=== PATIENT | male | born 1985 | race Caucasian/White ===

== ENCOUNTER 2021-05-23 20:07 | Inpatient (IN) | payer BC ==
[2021-05-23] MEDS ORDERED: Sodium Chloride 0.9% 10 ML Syringe FLUSH PRN (20:30)
[2021-05-23] MEDS ORDERED: Acetaminophen 325 MG Tab PO ONE (20:38)
--- NOTE | 2021-05-23 20:42 | EDM.PDOC ---
ED HPI GENERAL MEDICAL PROBLEM - General Chief Complaint: Respiratory Problem Stated Complaint: COVID+ Time Seen by Provider: 05/23/21 20:17 Source of Information: Reports: Patient, RN Notes Reviewed History Limitations: Reports: No Limitations - History of Present Illness INITIAL COMMENTS - FREE TEXT/NARRATIVE: Patient is a 35-year-old male who presents to the ER for his COVID-19 symptoms. States he think he has been symptomatic for about 5 days. Notes that he developed nausea and vomiting 2 days ago, he states that he has not really been able to keep much down for food or fluids. Has had some elevated temperatures, a dry intermittent cough, and some mild shortness of breath. States he does feel quite lethargic and just does not want to do much of anything at all. He was found to be slightly hypoxic at the time of triage O2 sats were around 86% on room air. He was placed on 2 L via nasal cannula and this did result in O2 sats that have improved to around 94 to 95%. Patient states he has no underlying medical conditions however when he was younger, he did have multiple RSV infections, and has had pneumonia a few times along with bronchitis, and bronchitis concurrent with pneumonia. Primary care provider is Dr. Krishnan. Generalized Pain Score (Numeric/FACES): 6 - Related Data Allergies Allergy/AdvReac Type Severity Reaction Status Date / Time diphenhydramine Allergy Rash Verified 05/23/21 20:14 [From Triaminic Allergy] Past Medical History Respiratory History: Reports: Bronchitis, Recurrent, Pneumonia, Recurrent, Other (See Below) Other Respiratory History: RSV in childhood. Musculoskeletal History: Reports: Back Pain, Chronic, Fracture Neurological History: Reports: Concussion - Infectious Disease History Infectious Disease History: Reports: Chicken Pox, Novel Coronavirus (05/11/21) - Past Surgical History Musculoskeletal Surgical History: Reports: Other (See Below) Other Musculoskeletal Surgeries/Procedures:: back surgery. Social & Family History - Tobacco Use Tobacco Use Status *Q: Never Tobacco User Second Hand Smoke Exposure: No - Caffeine Use Caffeine Use: Reports: Soda - Recreational Drug Use Recreational Drug Use: No ED ROS GENERAL - Review of Systems Review Of Systems: Comprehensive ROS is negative, except as noted in HPI. ED EXAM, GENERAL - Physical Exam Exam: See Below Exam Limited By: No Limitations General Appearance: Alert, WD/WN, No Apparent Distress Respiratory/Chest: No Respiratory Distress, Lungs Clear, Normal Breath Sounds, No Accessory Muscle Use, Chest Non-Tender Cardiovascular: Normal Peripheral Pulses, Regular Rate, Rhythm, No Edema GI/Abdominal: Normal Bowel Sounds, Soft, Non-Tender, No Distention, No Mass Extremities: Normal Inspection, Normal Capillary Refill Neurological: Alert, Oriented, Normal Cognition, No Motor/Sensory Deficits Psychiatric: Normal Affect, Normal Mood Skin Exam: Warm, Dry, Intact, Normal Color, No Rash Course - Vital Signs Last Recorded V/S: Last Vital Signs Temp 100.3 F 05/23/21 21:08 Pulse 93 05/23/21 21:08 Resp 13 05/23/21 21:08 BP 103/71 05/23/21 21:08 Pulse Ox 95 05/23/21 21:08 - Orders/Labs/Meds Orders: Active Orders 24 hr Category Date Time Status Oxygen Therapy, ED [RC] ASDIRECTED Care 05/23/21 20:15 Active Peripheral IV Care [RC] . DIRECTED Care 05/23/21 20:31 Ordered Chest 1V Frontal [CR] Stat Exams 05/23/21 20:30 Ordered Sodium Chloride 0.9% [Saline Flush] Med 05/23/21 20:30 Ordered 10 ml FLUSH ASDIRECTED PRN Peripheral IV Insertion Adult [OM.PC] Routine Oth 05/23/21 20:30 Ordered Medication Orders Sodium Chloride (Sodium Chloride 0.9% 10 Ml Syringe) 10 ml FLUSH ASDIRECTED PRN PRN Reason: Keep Vein Open Last Admin: 05/23/21 21:05 Dose: 10 ml Documented by: ALLEN Labs: Laboratory Tests 05/23/21 05/23/21 05/23/21 Range/Units 20:45 20:45 20:45 WBC 4.03 L (4.23-9.07) K/mm3 RBC 5.99 (4.63-6.08) M/mm3 Hgb 15.7 (13.7-17.5) gm/dl Hct 48.0 (40.1-51.0) % MCV 80.1 (79.0-92.2) fl MCH 26.2 (25.7-32.2) pg MCHC 32.7 (32.2-35.5) g/dl RDW Std Deviation 46.5 H (35.1-43.9) fL Plt Count 139 L (163-337) K/mm3 MPV 9.8 (9.4-12.3) fl Neut % (Auto) 77.8 H (34.0-67.9) % Lymph % (Auto) 16.6 L (21.8-53.1) % [place] % (Auto) 5.2 L (5.3-12.2) % Eos % (Auto) 0 L (0.8-7.0) Baso % (Auto) 0.2 (0.1-1.2) % Neut # (Auto) 3.13 (1.78-5.38) K/mm3 Lymph # (Auto) 0.67 L (1.32-3.57) K/mm3 [place] # (Auto) 0.21 L (0.30-0.82) K/mm3 Eos # (Auto) 0.00 L (0.04-0.54) K/mm3 Baso # (Auto) 0.01 (0.01-0.08) K/mm3 D-Dimer, Quantitative (0.19-0.50) mg/L Sodium 137 (136-145) mEq/L Potassium 3.7 (3.5-5.1) mEq/L Chloride 100 (98-107) mEq/L Carbon Dioxide 30 (21-32) mEq/L Anion Gap 10.7 (5-15) BUN 14 (7-18) mg/dL Creatinine 1.4 H (0.7-1.3) mg/dL Est Cr Clr Drug Dosing 80.06 mL/min Estimated GFR (MDRD) 57 (>60) mL/min BUN/Creatinine Ratio 10.0 L (14-18) Glucose 113 H (70-99) mg/dL Calcium 8.1 L (8.5-10.1) mg/dL Magnesium 2.0 (1.8-2.4) mg/dL Total Bilirubin 0.6 (0.2-1.0) mg/dL AST 42 H (15-37) U/L ALT 42 (16-63) U/L Alkaline Phosphatase 53 (46-116) U/L C-Reactive Protein 2.0 H* (<1.0) mg/dL Total Protein 7.1 (6.4-8.2) g/dl Albumin 3.5 (3.4-5.0) g/dl Globulin 3.6 gm/dL Albumin/Globulin Ratio 1.0 (1-2) 05/23/21 Range/Units 20:45 WBC (4.23-9.07) K/mm3 RBC (4.63-6.08) M/mm3 Hgb (13.7-17.5) gm/dl Hct (40.1-51.0) % MCV (79.0-92.2) fl MCH (25.7-32.2) pg MCHC (32.2-35.5) g/dl RDW Std Deviation (35.1-43.9) fL Plt Count (163-337) K/mm3 MPV (9.4-12.3) fl Neut % (Auto) (34.0-67.9) % Lymph % (Auto) (21.8-53.1) % [place] % (Auto) (5.3-12.2) % Eos % (Auto) (0.8-7.0) Baso % (Auto) (0.1-1.2) % Neut # (Auto) (1.78-5.38) K/mm3 Lymph # (Auto) (1.32-3.57) K/mm3 [place] # (Auto) (0.30-0.82) K/mm3 Eos # (Auto) (0.04-0.54) K/mm3 Baso # (Auto) (0.01-0.08) K/mm3 D-Dimer, Quantitative 0.58 H (0.19-0.50) mg/L Sodium (136-145) mEq/L Potassium (3.5-5.1) mEq/L Chloride (98-107) mEq/L Carbon Dioxide (21-32) mEq/L Anion Gap (5-15) BUN (7-18) mg/dL Creatinine (0.7-1.3) mg/dL Est Cr Clr Drug Dosing mL/min Estimated GFR (MDRD) (>60) mL/min BUN/Creatinine Ratio (14-18) Glucose (70-99) mg/dL Calcium (8.5-10.1) mg/dL Magnesium (1.8-2.4) mg/dL Total Bilirubin (0.2-1.0) mg/dL AST (15-37) U/L ALT (16-63) U/L Alkaline Phosphatase (46-116) U/L C-Reactive Protein (<1.0) mg/dL Total Protein (6.4-8.2) g/dl Albumin (3.4-5.0) g/dl Globulin gm/dL Albumin/Globulin Ratio (1-2) Meds: Medications Generic Name Dose Route Start Last Admin Trade Name Freq PRN Reason Stop Dose Admin Sodium Chloride 10 ml 05/23/21 20:30 05/23/21 21:05 Sodium Chloride 0.9% 10 Ml Syringe FLUSH 10 ml ASDIRECTED PRN Administration Keep Vein Open Discontinued Medications Generic Name Dose Route Start Last Admin Trade Name Freq PRN Reason Stop Dose Admin Acetaminophen 975 mg 05/23/21 20:38 05/23/21 21:05 Acetaminophen 325 Mg Tab PO 05/23/21 20:39 975 mg NOW ONE Administration Dexamethasone 6 mg 05/23/21 22:04 Dexamethasone 10 Mg/Ml Sdv IVPUSH 05/23/21 22:05 ONETIME ONE Remdesivir 200 mg/ Sodium 250 mls @ 250 mls/hr 05/23/21 22:04 Chloride IV 05/23/21 22:05 ONETIME ONE Ondansetron HCl 4 mg 05/23/21 20:58 05/23/21 21:05 Ondansetron 4 Mg/2 Ml Sdv IVPUSH 05/23/21 20:59 4 mg ONETIME ONE Administration - Re-Assessments/Exams Free Text/Narrative Re-Assessment/Exam: 05/23/21 20:41 Patient presents to the ER for the evaluation of his COVID-19. Patient was found to be hypoxic at the time of triage and placed on 2 L via nasal cannula. We will go ahead get IV started get some basic labs and a chest x-ray. Due to the patient's hypoxia he will likely need hospitalization. 05/23/21 22:09 Patient has remained on 2 L via nasal cannula and has been satting around 94% with this. Labs are fairly unremarkable, CRP is slightly elevated at 2.0, D- dimer at 0.58. I did call Dr. Luevano our hospitalist on-call, and he does ultimately accept the patient for management. Bridge orders have been written on the patient's behalf. Departure - Departure Time of Disposition: 22:09 Disposition: Admitted As Inpatient 65 Condition: Good Clinical Impression: COVID-19, Hypoxia - Discharge Information *PRESCRIPTION DRUG MONITORING PROGRAM REVIEWED*: No *COPY OF PRESCRIPTION DRUG MONITORING REPORT IN PATIENT JIM: No Forms: ED Department Discharge Sepsis Event Note (ED) - Evaluation Sepsis Screening Result: No Definite Risk - Focused Exam Vital Signs: Vital Signs Temp Pulse Resp BP Pulse Ox 05/23/21 21:08 100.3 F 93 13 103/71 95 05/23/21 20:10 99.6 F 100 18 102/66 86 L - My Orders Last 24 Hours: My Active Orders 05/23/21 20:15 Oxygen Therapy, ED [RC] ASDIRECTED 05/23/21 20:30 Chest 1V Frontal [CR] Stat Sodium Chloride 0.9% [Saline Flush] 10 ml FLUSH ASDIRECTED PRN Peripheral IV Insertion Adult [OM.PC] Routine 05/23/21 20:31 Peripheral IV Care [RC] . DIRECTED - Assessment/Plan Last 24 Hours: My Active Orders 05/23/21 20:15 Oxygen Therapy, ED [RC] ASDIRECTED 05/23/21 20:30 Chest 1V Frontal [CR] Stat Sodium Chloride 0.9% [Saline Flush] 10 ml FLUSH ASDIRECTED PRN Peripheral IV Insertion Adult [OM.PC] Routine 05/23/21 20:31 Peripheral IV Care [RC] . DIRECTED
[2021-05-23] MEDS ORDERED: Ondansetron 4 MG/2 ML SDV IVPUSH ONE (20:58)
[2021-05-23] MEDS ORDERED: REMDESIVIR 200 MG in Sodium Chloride 0.9% 250 ML IV ONE (22:04)
[2021-05-23] MEDS ORDERED: Dexamethasone 10 MG/ML SDV IVPUSH ONE (22:04)
[2021-05-23] MEDS ORDERED: Ondansetron 4 MG/2 ML SDV IVPUSH PRN (23:20)
[2021-05-23] MEDS ORDERED: Acetaminophen 325 MG Tab PO PRN (23:22)
[2021-05-23] MEDS ORDERED: Sodium Chloride 0.9% 1,000 ML IV SCH (23:30)
--- NOTE | 2021-05-24 07:08 | CR ---
Chest: Frontal view of the chest was obtained. Comparison: No prior chest imaging is available. Patchy increased density is seen within the left mid and lower lung. Slight density is noted within the right midlung. Heart size and mediastinum are normal. Bony structures show nothing acute. Impression: 1. Slight density within both lungs suspicious for mild COVID pneumonia. Diagnostic code #3
[2021-05-24] MEDS ORDERED: Albuterol 6.7 GM Inhaler INH PRN (08:32)
--- NOTE | 2021-05-24 09:44 | PCM.HP.2 ---
H&P History of Present Illness - General Date of Service: 05/24/21 Admit Problem/Dx: Admission Diagnosis/Problem Admission Diagnosis/Problem Hypoxia - History of Present Illness Initial Comments - Free Text/Narative: 35-year-old male who presented to the emergency department with 2 days of nausea and vomiting. He states he started getting symptomatic approximately 5 days ago with fatigue and intermittent coughing. He feels lethargic and general malaise. When he presented to the emergency department his oxygen saturations were in the 80s and he was placed on 2 L via nasal cannula and oxygen saturations in creased to 94%. He has no significant history although he did have multiple RSV infections as a child. Patient was positive for COVID-19. He did not receive the COVID-19 vaccinations. In the emergency department he was started on remdesivir and dexamethasone. It was felt that he needed to be hospitalized secondary to his hypoxemia. Lab work was insignificant except for a slightly elevated CRP of 2.0. Generalized Pain Score (Numeric/FACES): 6 - Related Data Allergies/Adverse Reactions: Allergies Allergy/AdvReac Type Severity Reaction Status Date / Time diphenhydramine Allergy Rash Verified 05/23/21 23:02 [From Triaminic Allergy] Home Medications: Home Meds Albuterol [Ventolin HFA] 2 puff PO Q2HR PRN 05/23/21 [History] Past Medical History Respiratory History: Reports: Bronchitis, Recurrent, Pneumonia, Recurrent, Other (See Below) Other Respiratory History: RSV in childhood. Musculoskeletal History: Reports: Back Pain, Chronic, Fracture Neurological History: Reports: Concussion - Infectious Disease History Infectious Disease History: Reports: Chicken Pox, Influenza, Novel Coronavirus - Past Surgical History Respiratory Surgical History: Reports: None Neurological Surgical History: Reports: None Musculoskeletal Surgical History: Reports: Other (See Below) Other Musculoskeletal Surgeries/Procedures:: back surgery for herniated disc Social & Family History - Family History Family Medical History: No Pertinent Family History - Tobacco Use Tobacco Use Status *Q: Current Some Day Tobacco User Years of Tobacco use: 20 Packs/Tins Daily: 1 Used Tobacco, but Quit: No Second Hand Smoke Exposure: No - Caffeine Use Caffeine Use: Reports: Soda Other Caffeine Use: one can of [place] dew every monrning - Recreational Drug Use Recreational Drug Use: No H&P Review of Systems - Review of Systems: Review Of Systems: Comprehensive ROS is negative, except as noted in HPI. Exam - Exam Exam: See Below - Vital Signs Vital Signs: Last Vital Signs Temp 98.9 F 05/24/21 05:00 Pulse 57 L 05/24/21 04:54 Resp 14 05/24/21 05:00 BP 111/67 05/24/21 05:00 Pulse Ox 94 L 05/24/21 05:00 Weight: 189 lb 14.4 oz - Exam Quality Assessment: Supplemental Oxygen General: Alert, Oriented, 4 HEENT: Conjunctiva Clear, EOMI, Hearing Intact, Mucosa Moist & [place] Neck: Supple, Trachea Midline, 2 Lungs: Crackles (Bibasilar). No: Normal Respiratory Effort (Increased rate and effort) Cardiovascular: Regular Rate, Regular Rhythm GI/Abdominal Exam: Normal Bowel Sounds, Soft, Non-Tender, No Organomegaly, No Distention, No Abnormal Bruit, No Mass Extremities: Normal Inspection, Normal Range of Motion, Non-Tender, No Pedal Edema, Normal Capillary Refill Skin: Warm, Dry, Intact Neuro Extensive - Mental Status: Alert, Oriented x3, Normal Mood/Affect, Normal Cognition, Memory Intact Neuro Extensive - Motor, Sensory, Reflexes: CN II-XII Intact Psychiatric: Alert, Normal Affect, Normal Mood - Patient Data Lab Results Last 24 hrs: Laboratory Results - last 24 hr 05/23/21 05/23/21 05/23/21 Range/Units 20:45 20:45 20:45 WBC 4.03 L (4.23-9.07) K/mm3 RBC 5.99 (4.63-6.08) M/mm3 Hgb 15.7 (13.7-17.5) gm/dl Hct 48.0 (40.1-51.0) % MCV 80.1 (79.0-92.2) fl MCH 26.2 (25.7-32.2) pg MCHC 32.7 (32.2-35.5) g/dl RDW Std Deviation 46.5 H (35.1-43.9) fL Plt Count 139 L (163-337) K/mm3 MPV 9.8 (9.4-12.3) fl Neut % (Auto) 77.8 H (34.0-67.9) % Lymph % (Auto) 16.6 L (21.8-53.1) % [place] % (Auto) 5.2 L (5.3-12.2) % Eos % (Auto) 0 L (0.8-7.0) Baso % (Auto) 0.2 (0.1-1.2) % Neut # (Auto) 3.13 (1.78-5.38) K/mm3 Lymph # (Auto) 0.67 L (1.32-3.57) K/mm3 [place] # (Auto) 0.21 L (0.30-0.82) K/mm3 Eos # (Auto) 0.00 L (0.04-0.54) K/mm3 Baso # (Auto) 0.01 (0.01-0.08) K/mm3 D-Dimer, Quantitative (0.19-0.50) mg/L Sodium 137 (136-145) mEq/L Potassium 3.7 (3.5-5.1) mEq/L Chloride 100 (98-107) mEq/L Carbon Dioxide 30 (21-32) mEq/L Anion Gap 10.7 (5-15) BUN 14 (7-18) mg/dL Creatinine 1.4 H (0.7-1.3) mg/dL Est Cr Clr Drug Dosing 80.06 mL/min Estimated GFR (MDRD) 57 (>60) mL/min BUN/Creatinine Ratio 10.0 L (14-18) Glucose 113 H (70-99) mg/dL Calcium 8.1 L (8.5-10.1) mg/dL Magnesium 2.0 (1.8-2.4) mg/dL Total Bilirubin 0.6 (0.2-1.0) mg/dL AST 42 H (15-37) U/L ALT 42 (16-63) U/L Alkaline Phosphatase 53 (46-116) U/L C-Reactive Protein 2.0 H* (<1.0) mg/dL Total Protein 7.1 (6.4-8.2) g/dl Albumin 3.5 (3.4-5.0) g/dl Globulin 3.6 gm/dL Albumin/Globulin Ratio 1.0 (1-2) 05/23/21 Range/Units 20:45 WBC (4.23-9.07) K/mm3 RBC (4.63-6.08) M/mm3 Hgb (13.7-17.5) gm/dl Hct (40.1-51.0) % MCV (79.0-92.2) fl MCH (25.7-32.2) pg MCHC (32.2-35.5) g/dl RDW Std Deviation (35.1-43.9) fL Plt Count (163-337) K/mm3 MPV (9.4-12.3) fl Neut % (Auto) (34.0-67.9) % Lymph % (Auto) (21.8-53.1) % [place] % (Auto) (5.3-12.2) % Eos % (Auto) (0.8-7.0) Baso % (Auto) (0.1-1.2) % Neut # (Auto) (1.78-5.38) K/mm3 Lymph # (Auto) (1.32-3.57) K/mm3 [place] # (Auto) (0.30-0.82) K/mm3 Eos # (Auto) (0.04-0.54) K/mm3 Baso # (Auto) (0.01-0.08) K/mm3 D-Dimer, Quantitative 0.58 H (0.19-0.50) mg/L Sodium (136-145) mEq/L Potassium (3.5-5.1) mEq/L Chloride (98-107) mEq/L Carbon Dioxide (21-32) mEq/L Anion Gap (5-15) BUN (7-18) mg/dL Creatinine (0.7-1.3) mg/dL Est Cr Clr Drug Dosing mL/min Estimated GFR (MDRD) (>60) mL/min BUN/Creatinine Ratio (14-18) Glucose (70-99) mg/dL Calcium (8.5-10.1) mg/dL Magnesium (1.8-2.4) mg/dL Total Bilirubin (0.2-1.0) mg/dL AST (15-37) U/L ALT (16-63) U/L Alkaline Phosphatase (46-116) U/L C-Reactive Protein (<1.0) mg/dL Total Protein (6.4-8.2) g/dl Albumin (3.4-5.0) g/dl Globulin gm/dL Albumin/Globulin Ratio (1-2) Result Diagrams: 05/23/21 20:45 05/23/21 20:45 Sepsis Event Note - Evaluation Sepsis Screening Result: No Definite Risk - Focused Exam Vital Signs: Vital Signs Temp Temp Temp Pulse Pulse Resp BP 05/24/21 05:00 98.9 F 14 05/24/21 04:54 57 L 111/67 05/23/21 22:59 99.7 F 80 14 101/65 05/23/21 22:46 97.8 F 74 18 BP Pulse Ox 05/24/21 05:00 111/67 94 L 05/24/21 04:54 94 L 05/23/21 22:59 93 L 05/23/21 22:46 105/71 97 - Problem List (1) COVID-19 SNOMED Code(s): 051399359 ICD Code: U07.1 - COVID-19 Status: Acute Current Visit: Yes (2) Hypoxia SNOMED Code(s): 536972591 ICD Code: R09.02 - HYPOXEMIA Status: Acute Current Visit: Yes (3) Pneumonia due to COVID-19 virus SNOMED Code(s): 808393918642397075 ICD Code: U07.1 - COVID-19; J12.82 - PNEUMONIA DUE TO CORONAVIRUS DISEASE 2019 Status: Acute Current Visit: Yes Problem List Initiated/Reviewed/Updated: Yes Orders Last 24hrs: Active Orders 24 hr Category Date Time Status Admission Status [Patient Status] [ADT] Routine ADT 05/23/21 22:12 Active Activity as Tolerated [RC] Care 05/23/21 23:20 Active Oxygen Therapy Adult [Oxygen Therapy] [RC] ASDIRECTED Care 05/23/21 23:25 Active Regular Diet [DIET] Diet 05/24/21 Breakfast Active Acetaminophen [TylenoL] Med 05/23/21 23:22 Active 975 mg PO Q6H PRN Albuterol [Proventil HFA] Med 05/24/21 08:32 Active 2 gm INH Q2H PRN Ondansetron [Zofran] Med 05/23/21 23:20 Active 4 mg IVPUSH Q8H PRN Remdesivir 100 mg Med 05/24/21 22:00 Active Sodium Chloride 0.9% [Normal Saline] 250 ml IV Q24H Sodium Chloride 0.9% [Normal Saline] 1,000 ml Med 05/23/21 23:30 Active IV ASDIRECTED Sodium Chloride 0.9% [Saline Flush] Med 05/23/21 20:30 Active 10 ml FLUSH ASDIRECTED PRN Peripheral IV Insertion Adult [OM.PC] Routine Oth 05/23/21 20:30 Ordered Pulse Oximetry Continuous Monitoring [OM.PC] Routine Oth 05/23/21 23:00 Active Code Status [Resuscitation Status] Routine Resus Stat 05/23/21 23:18 Ordered Medication Orders Acetaminophen (Acetaminophen 325 Mg Tab) 975 mg PO Q6H PRN PRN Reason: Fever Albuterol (Albuterol 6.7 Gm Inhaler) 2 gm INH Q2H PRN PRN Reason: Wheezing Sodium Chloride (Normal Saline) 1,000 mls @ 75 mls/hr IV ASDIRECTED LIVE Last Admin: 05/23/21 23:44 Dose: 75 mls/hr Documented by: TIGRE Remdesivir 100 mg/ Sodium (Chloride) 250 mls @ 250 mls/hr IV Q24H [facility] Stop: 05/27/21 22:59 Ondansetron HCl (Ondansetron 4 Mg/2 Ml Sdv) 4 mg IVPUSH Q8H PRN PRN Reason: Nausea Sodium Chloride (Sodium Chloride 0.9% 10 Ml Syringe) 10 ml FLUSH ASDIRECTED PRN PRN Reason: Keep Vein Open Last Admin: 05/23/21 21:05 Dose: 10 ml Documented by: ALLEN Assessment/Plan Comment:: 35-year-old unvaccinated male presents with nausea, vomiting, and cough and is positive for COVID-19. COVID-19 pneumonia Hypoxemia 2 to 5-day history of symptoms generally cough, nausea, and vomiting. Hypoxemic when present to the emergency department requiring 2 L nasal cannula. Chest x-ray consistent with mild COVID-19 pneumonia CRP 2.0 otherwise labs were normal. Started on dexamethasone and remdesivir in the emergency department. Remote history of recurrent infectious lung disease otherwise no significant h istory. Plan Admit to medical floor FiO2 to keep SPO2 greater than 88%. Continue remdesivir and dexamethasone. Follow CBC, CMP, mag, CRP Routine COVID-19 care to include proning, RT, incentive spirometry in the such. Zofran for nausea VTE prophylaxis with Lovenox CODE STATUS: Full code - Mortality Measure Prognosis:: Good
[2021-05-24] MEDS ORDERED: Melatonin 3 MG Tab PO PRN (10:12)
[2021-05-24] MEDS: Enoxaparin 40 MG/0.4 ML Syringe SUBCUT SCH (11:36)
[2021-05-24] MEDS ORDERED: Dexamethasone 4 MG Tab PO SCH (21:00)
[2021-05-24] MEDS ORDERED: REMDESIVIR 100 MG in Sodium Chloride 0.9% 250 ML IV SCH (22:00)
--- NOTE | 2021-05-25 09:44 | PCM.PN ---
- General Info Date of Service: 05/25/21 Admission Dx/Problem (Free Text): Admission Diagnosis/Problem Admission Diagnosis/Problem Hypoxia Subjective Update: Tai states he is continuing to feel better. Oxygen saturations have improved and he is only on 1 L nasal cannula. Functional Status: Reports: Pain Controlled - Review of Systems General: Reports: No Symptoms HEENT: Reports: No Symptoms Pulmonary: Reports: Cough. Denies: Shortness of Breath Cardiovascular: Reports: No Symptoms Gastrointestinal: Reports: No Symptoms Musculoskeletal: Reports: No Symptoms - Patient Data Vitals - Most Recent: Last Vital Signs Temp 97.7 F 05/25/21 04:55 Pulse 51 L 05/25/21 04:55 Resp 13 05/25/21 04:55 BP 101/54 L 05/25/21 04:55 Pulse Ox 91 L 05/25/21 08:46 Weight - Most Recent: 190 lb 12.8 oz I&O - Last 24 Hours: Intake & Output 05/24/21 05/25/21 05/25/21 22:59 06:59 14:59 Intake Total 820 850 Output Total 900 850 Balance -80 0 Lab Results Last 24 Hours: Laboratory Results - last 24 hr 05/25/21 05/25/21 Range/Units 05:36 05:36 WBC 4.56 (4.23-9.07) K/mm3 RBC 5.80 (4.63-6.08) M/mm3 Hgb 15.3 (13.7-17.5) gm/dl Hct 46.9 (40.1-51.0) % MCV 80.9 (79.0-92.2) fl MCH 26.4 (25.7-32.2) pg MCHC 32.6 (32.2-35.5) g/dl RDW Std Deviation 47.5 H (35.1-43.9) fL Plt Count 183 (163-337) K/mm3 MPV 9.9 (9.4-12.3) fl Neut % (Auto) 77.4 H (34.0-67.9) % Lymph % (Auto) 14.3 L (21.8-53.1) % [place] % (Auto) 7.7 (5.3-12.2) % Eos % (Auto) 0.2 L (0.8-7.0) Baso % (Auto) 0.2 (0.1-1.2) % Neut # (Auto) 3.53 (1.78-5.38) K/mm3 Lymph # (Auto) 0.65 L (1.32-3.57) K/mm3 [place] # (Auto) 0.35 (0.30-0.82) K/mm3 Eos # (Auto) 0.01 L (0.04-0.54) K/mm3 Baso # (Auto) 0.01 (0.01-0.08) K/mm3 Sodium 141 (136-145) mEq/L Potassium 4.5 (3.5-5.1) mEq/L Chloride 103 (98-107) mEq/L Carbon Dioxide 30 (21-32) mEq/L Anion Gap 12.5 (5-15) BUN 17 (7-18) mg/dL Creatinine 1.2 (0.7-1.3) mg/dL Est Cr Clr Drug Dosing 93.41 mL/min Estimated GFR (MDRD) > 60 (>60) mL/min BUN/Creatinine Ratio 14.2 (14-18) Glucose 139 H (70-99) mg/dL Calcium 8.4 L (8.5-10.1) mg/dL Phosphorus 3.3 (2.6-4.7) mg/dL Magnesium 2.3 (1.8-2.4) mg/dL Total Bilirubin 0.4 (0.2-1.0) mg/dL AST 37 (15-37) U/L ALT 44 (16-63) U/L Alkaline Phosphatase 52 (46-116) U/L C-Reactive Protein 0.6 (<1.0) mg/dL Total Protein 6.4 (6.4-8.2) g/dl Albumin 3.3 L (3.4-5.0) g/dl Globulin 3.1 gm/dL Albumin/Globulin Ratio 1.1 (1-2) Med Orders - Current: Current Medications Acetaminophen (Acetaminophen 325 Mg Tab) 975 mg PO Q6H PRN PRN Reason: Fever Last Admin: 05/24/21 22:35 Dose: 975 mg Documented by: Albuterol (Albuterol 6.7 Gm Inhaler) 2 gm INH Q2H PRN PRN Reason: Wheezing Dexamethasone (Dexamethasone 4 Mg Tab) 6 mg PO Q24H LIVE Stop: 06/01/21 21:01 Last Admin: 05/24/21 21:28 Dose: 6 mg Documented by: Enoxaparin Sodium (Enoxaparin 40 Mg/0.4 Ml Syringe) 40 mg SUBCUT DAILY [facility] Last Admin: 05/24/21 11:36 Dose: 40 mg Documented by: Remdesivir 100 mg/ Sodium (Chloride) 250 mls @ 250 mls/hr IV Q24H LIVE Stop: 05/27/21 22:59 Last Admin: 05/24/21 21:29 Dose: 250 mls/hr Documented by: Melatonin (Melatonin 3 Mg Tab) 6 mg PO BEDTIME PRN PRN Reason: Insomnia Last Admin: 05/24/21 22:34 Dose: 6 mg Documented by: Ondansetron HCl (Ondansetron 4 Mg/2 Ml Sdv) 4 mg IVPUSH Q8H PRN PRN Reason: Nausea Sodium Chloride (Sodium Chloride 0.9% 10 Ml Syringe) 10 ml FLUSH ASDIRECTED PRN PRN Reason: Keep Vein Open Last Admin: 05/23/21 21:05 Dose: 10 ml Documented by: Discontinued Medications Acetaminophen (Acetaminophen 325 Mg Tab) 975 mg PO NOW ONE Stop: 05/23/21 20:39 Last Admin: 05/23/21 21:05 Dose: 975 mg Documented by: Dexamethasone (Dexamethasone 10 Mg/Ml Sdv) 6 mg IVPUSH ONETIME ONE Stop: 05/23/21 22:05 Last Admin: 05/23/21 22:41 Dose: 6 mg Documented by: Remdesivir 200 mg/ Sodium (Chloride) 250 mls @ 250 mls/hr IV ONETIME ONE Stop: 05/23/21 22:05 Last Admin: 05/23/21 22:42 Dose: 250 mls/hr Documented by: Sodium Chloride (Normal Saline) 1,000 mls @ 75 mls/hr IV ASDIRECTED LIVE Last Admin: 05/23/21 23:44 Dose: 75 mls/hr Documented by: Ondansetron HCl (Ondansetron 4 Mg/2 Ml Sdv) 4 mg IVPUSH ONETIME ONE Stop: 05/23/21 20:59 Last Admin: 05/23/21 21:05 Dose: 4 mg Documented by: - Exam Quality Assessment: Supplemental Oxygen General: Alert, Oriented HEENT: Pupils Equal, Mucous Membr. Moist/[place] Neck: Supple Lungs: Normal Respiratory Effort, Crackles (Bibasilar right worse than left) Cardiovascular: Regular Rate, Regular Rhythm GI/Abdominal Exam: Normal Bowel Sounds, Soft, Non-Tender, No Distention Skin: Warm, Dry, Intact Psy/Mental Status: Alert, Normal Affect, Normal Mood - Patient Data Lab Results Last 24 hrs: Laboratory Results - last 24 hr 05/25/21 05/25/21 Range/Units 05:36 05:36 WBC 4.56 (4.23-9.07) K/mm3 RBC 5.80 (4.63-6.08) M/mm3 Hgb 15.3 (13.7-17.5) gm/dl Hct 46.9 (40.1-51.0) % MCV 80.9 (79.0-92.2) fl MCH 26.4 (25.7-32.2) pg MCHC 32.6 (32.2-35.5) g/dl RDW Std Deviation 47.5 H (35.1-43.9) fL Plt Count 183 (163-337) K/mm3 MPV 9.9 (9.4-12.3) fl Neut % (Auto) 77.4 H (34.0-67.9) % Lymph % (Auto) 14.3 L (21.8-53.1) % [place] % (Auto) 7.7 (5.3-12.2) % Eos % (Auto) 0.2 L (0.8-7.0) Baso % (Auto) 0.2 (0.1-1.2) % Neut # (Auto) 3.53 (1.78-5.38) K/mm3 Lymph # (Auto) 0.65 L (1.32-3.57) K/mm3 [place] # (Auto) 0.35 (0.30-0.82) K/mm3 Eos # (Auto) 0.01 L (0.04-0.54) K/mm3 Baso # (Auto) 0.01 (0.01-0.08) K/mm3 Sodium 141 (136-145) mEq/L Potassium 4.5 (3.5-5.1) mEq/L Chloride 103 (98-107) mEq/L Carbon Dioxide 30 (21-32) mEq/L Anion Gap 12.5 (5-15) BUN 17 (7-18) mg/dL Creatinine 1.2 (0.7-1.3) mg/dL Est Cr Clr Drug Dosing 93.41 mL/min Estimated GFR (MDRD) > 60 (>60) mL/min BUN/Creatinine Ratio 14.2 (14-18) Glucose 139 H (70-99) mg/dL Calcium 8.4 L (8.5-10.1) mg/dL Phosphorus 3.3 (2.6-4.7) mg/dL Magnesium 2.3 (1.8-2.4) mg/dL Total Bilirubin 0.4 (0.2-1.0) mg/dL AST 37 (15-37) U/L ALT 44 (16-63) U/L Alkaline Phosphatase 52 (46-116) U/L C-Reactive Protein 0.6 (<1.0) mg/dL Total Protein 6.4 (6.4-8.2) g/dl Albumin 3.3 L (3.4-5.0) g/dl Globulin 3.1 gm/dL Albumin/Globulin Ratio 1.1 (1-2) Result Diagrams: 05/25/21 05:36 05/25/21 05:36 Sepsis Event Note - Evaluation Sepsis Screening Result: No Definite Risk - Focused Exam Vital Signs: Vital Signs Temp Temp Pulse Pulse Resp BP BP 05/25/21 08:46 05/25/21 04:55 97.7 F 51 L 13 101/54 L 05/25/21 00:00 98.5 F 62 13 104/60 Pulse Ox Pulse Ox 05/25/21 08:46 91 L 05/25/21 04:55 98 05/25/21 00:00 95 - Problem List & Annotations (1) COVID-19 SNOMED Code(s): 156555894 Code(s): U07.1 - COVID-19 Status: Acute Current Visit: Yes (2) Hypoxia SNOMED Code(s): 648580079 Code(s): R09.02 - HYPOXEMIA Status: Acute Current Visit: Yes (3) Pneumonia due to COVID-19 virus SNOMED Code(s): 976285015586024011 Code(s): U07.1 - COVID-19; J12.82 - PNEUMONIA DUE TO CORONAVIRUS DISEASE 2019 Status: Acute Current Visit: Yes - Problem List Review Problem List Initiated/Reviewed/Updated: Yes - My Orders Last 24 Hours: My Active Orders 05/24/21 10:12 Melatonin 6 mg PO BEDTIME PRN 05/24/21 10:30 Enoxaparin [Lovenox] 40 mg SUBCUT DAILY 05/24/21 16:12 RT Incentive Spirometry [RC] ASDIRECTED 05/24/21 21:00 dexAMETHasone 6 mg PO Q24H 05/26/21 05:11 C-REACTIVE PROTEIN [CHEM] AM CBC WITH AUTO DIFF [HEME] AM CMP [COMPREHENSIVE METABOLIC PN,CMP] [CHEM] AM DD [D-DIMER QUANTITATIVE] [COAG] Q48H MAGNESIUM [CHEM] AM 05/27/21 05:11 C-REACTIVE PROTEIN [CHEM] AM CBC WITH AUTO DIFF [HEME] AM CMP [COMPREHENSIVE METABOLIC PN,CMP] [CHEM] AM MAGNESIUM [CHEM] AM 05/28/21 05:11 C-REACTIVE PROTEIN [CHEM] AM CBC WITH AUTO DIFF [HEME] AM CMP [COMPREHENSIVE METABOLIC PN,CMP] [CHEM] AM DD [D-DIMER QUANTITATIVE] [COAG] Q48H MAGNESIUM [CHEM] AM 05/29/21 05:11 C-REACTIVE PROTEIN [CHEM] AM CBC WITH AUTO DIFF [HEME] AM CMP [COMPREHENSIVE METABOLIC PN,CMP] [CHEM] AM MAGNESIUM [CHEM] AM 05/30/21 05:11 DD [D-DIMER QUANTITATIVE] [COAG] Q48H - Plan Plan:: 35-year-old unvaccinated male presents with nausea, vomiting, and cough and is positive for COVID-19. 05/24/2021 COVID-19 pneumonia Hypoxemia 2 to 5-day history of symptoms generally cough, nausea, and vomiting. Hypoxemic when present to the emergency department requiring 2 L nasal cannula. Chest x-ray consistent with mild COVID-19 pneumonia CRP 2.0 otherwise labs were normal. Started on dexamethasone and remdesivir in the emergency department. Remote history of recurrent infectious lung disease otherwise no significant hi story. 05/25/2021 35-year-old male with COVID-19 and hypoxemia. He has continued to improve and is on only 1 L nasal cannula. He is on day 3 of remdesivir which will be given this evening. Continues on dexamethasone. CRP did come down to 6.0. Creatinine also improved and it is 1.2 down from 1.4 with an estimated GFR of greater than 60. Plan Admit to medical floor FiO2 to keep SPO2 greater than 88%. Remdesivir and dexamethasone day 3 Follow CBC, CMP, mag, CRP Routine COVID-19 care to include proning, RT, incentive spirometry in the such. Zofran for nausea VTE prophylaxis with Lovenox CODE STATUS: Full code
[2021-05-25] MEDS: Enoxaparin 40 MG/0.4 ML Syringe SUBCUT SCH (10:15)
[2021-05-25] MEDS: Dexamethasone 4 MG Tab PO SCH (18:18)
[2021-05-25] MEDS: REMDESIVIR 100 MG in Sodium Chloride 0.9% 250 ML IV SCH (18:24)
[2021-05-25] MEDS: Docusate Sodium 100 MG Cap PO SCH (20:28)
[2021-05-26] MEDS: Enoxaparin 40 MG/0.4 ML Syringe SUBCUT SCH (08:04)
[2021-05-26] MEDS: Docusate Sodium 100 MG Cap PO SCH ×2 (08:05→20:07)
[2021-05-26] MEDS ORDERED: Magnesium Hydroxide 400 MG/5 ML Susp 30 ML Cup PO ONE (09:00)
--- NOTE | 2021-05-26 09:14 | PCM.PN ---
- General Info Date of Service: 05/26/21 Admission Dx/Problem (Free Text): Admission Diagnosis/Problem Admission Diagnosis/Problem Hypoxia Functional Status: Reports: Pain Controlled, Tolerating Diet, Ambulating, Urinating, Incentive Spirometry, Other (Acapella ). Denies: New Symptoms - Review of Systems General: Reports: No Symptoms. Denies: Fever, Weakness, Fatigue, Malaise, Chills HEENT: Reports: No Symptoms. Denies: Headaches, Sore Throat Pulmonary: Reports: Cough, Sputum. Denies: Shortness of Breath, Pleuritic Chest Pain, Wheezing Cardiovascular: Reports: Dyspnea on Exertion. Denies: Chest Pain, Palpitations, PND, Edema Gastrointestinal: Reports: No Symptoms. Denies: Abdominal Pain, Constipation, Diarrhea, Nausea, Vomiting Genitourinary: Reports: No Symptoms. Denies: Pain Musculoskeletal: Reports: No Symptoms Skin: Reports: No Symptoms. Denies: Cyanosis Neurological: Reports: No Symptoms. Denies: Confusion, Dizziness, Headache, Numbness, Seizure, Syncope, Tingling, Trouble Speaking, Difficulty Walking, Weakness, Gait Disturbance Psychiatric: Reports: No Symptoms - Patient Data Vitals - Most Recent: Last Vital Signs Temp 97.5 F 05/26/21 08:10 Pulse 62 05/26/21 08:10 Resp 16 05/26/21 08:10 BP 115/61 05/26/21 08:10 Pulse Ox 92 L 05/26/21 08:22 Weight - Most Recent: 190 lb 12.8 oz I&O - Last 24 Hours: Intake & Output 05/25/21 05/26/21 05/26/21 22:59 06:59 14:59 Intake Total 1040 Output Total 300 900 Balance 740 -900 Lab Results Last 24 Hours: Laboratory Results - last 24 hr 05/26/21 05/26/21 05/26/21 Range/Units 05:52 05:52 05:52 WBC 4.82 (4.23-9.07) K/mm3 RBC 5.84 (4.63-6.08) M/mm3 Hgb 15.2 (13.7-17.5) gm/dl Hct 47.2 (40.1-51.0) % MCV 80.8 (79.0-92.2) fl MCH 26.0 (25.7-32.2) pg MCHC 32.2 (32.2-35.5) g/dl RDW Std Deviation 47.8 H (35.1-43.9) fL Plt Count 215 (163-337) K/mm3 MPV 9.8 (9.4-12.3) fl Neut % (Auto) 74.3 H (34.0-67.9) % Lymph % (Auto) 13.7 L (21.8-53.1) % [place] % (Auto) 11.6 (5.3-12.2) % Eos % (Auto) 0 L (0.8-7.0) Baso % (Auto) 0.2 (0.1-1.2) % Neut # (Auto) 3.58 (1.78-5.38) K/mm3 Lymph # (Auto) 0.66 L (1.32-3.57) K/mm3 [place] # (Auto) 0.56 (0.30-0.82) K/mm3 Eos # (Auto) 0.00 L (0.04-0.54) K/mm3 Baso # (Auto) 0.01 (0.01-0.08) K/mm3 D-Dimer, Quantitative 0.24 (0.19-0.50) mg/L Sodium 144 (136-145) mEq/L Potassium 4.4 (3.5-5.1) mEq/L Chloride 105 (98-107) mEq/L Carbon Dioxide 31 (21-32) mEq/L Anion Gap 12.4 (5-15) BUN 16 (7-18) mg/dL Creatinine 1.0 (0.7-1.3) mg/dL Est Cr Clr Drug Dosing 112.09 mL/min Estimated GFR (MDRD) > 60 (>60) mL/min BUN/Creatinine Ratio 16.0 (14-18) Glucose 134 H (70-99) mg/dL Calcium 8.5 (8.5-10.1) mg/dL Magnesium 2.3 (1.8-2.4) mg/dL Total Bilirubin 0.4 (0.2-1.0) mg/dL AST 41 H (15-37) U/L ALT 57 (16-63) U/L Alkaline Phosphatase 52 (46-116) U/L C-Reactive Protein < 0.2 (<1.0) mg/dL Total Protein 6.4 (6.4-8.2) g/dl Albumin 3.4 (3.4-5.0) g/dl Globulin 3.0 gm/dL Albumin/Globulin Ratio 1.1 (1-2) Med Orders - Current: Current Medications Acetaminophen (Acetaminophen 325 Mg Tab) 975 mg PO Q6H PRN PRN Reason: Fever Last Admin: 05/24/21 22:35 Dose: 975 mg Documented by: Albuterol (Albuterol 6.7 Gm Inhaler) 2 gm INH Q2H PRN PRN Reason: Wheezing Dexamethasone (Dexamethasone 4 Mg Tab) 6 mg PO Q24H LIVE Stop: 06/01/21 19:01 Last Admin: 05/25/21 18:18 Dose: 6 mg Documented by: Docusate Sodium (Docusate Sodium 100 Mg Cap) 100 mg PO Q12H [facility] Last Admin: 05/26/21 08:05 Dose: 100 mg Documented by: Enoxaparin Sodium (Enoxaparin 40 Mg/0.4 Ml Syringe) 40 mg SUBCUT DAILY [facility] Last Admin: 05/26/21 08:04 Dose: 40 mg Documented by: Remdesivir 100 mg/ Sodium (Chloride) 250 mls @ 250 mls/hr IV Q24H LIVE Stop: 05/27/21 19:59 Last Admin: 05/25/21 18:24 Dose: 250 mls/hr Documented by: Melatonin (Melatonin 3 Mg Tab) 6 mg PO BEDTIME PRN PRN Reason: Insomnia Last Admin: 05/24/21 22:34 Dose: 6 mg Documented by: Ondansetron HCl (Ondansetron 4 Mg/2 Ml Sdv) 4 mg IVPUSH Q8H PRN PRN Reason: Nausea Sodium Chloride (Sodium Chloride 0.9% 10 Ml Syringe) 10 ml FLUSH ASDIRECTED PRN PRN Reason: Keep Vein Open Last Admin: 05/23/21 21:05 Dose: 10 ml Documented by: Discontinued Medications Acetaminophen (Acetaminophen 325 Mg Tab) 975 mg PO NOW ONE Stop: 05/23/21 20:39 Last Admin: 05/23/21 21:05 Dose: 975 mg Documented by: Dexamethasone (Dexamethasone 10 Mg/Ml Sdv) 6 mg IVPUSH ONETIME ONE Stop: 05/23/21 22:05 Last Admin: 05/23/21 22:41 Dose: 6 mg Documented by: Dexamethasone (Dexamethasone 4 Mg Tab) 6 mg PO Q24H LIVE Stop: 06/01/21 21:01 Last Admin: 05/24/21 21:28 Dose: 6 mg Documented by: Remdesivir 200 mg/ Sodium (Chloride) 250 mls @ 250 mls/hr IV ONETIME ONE Stop: 05/23/21 22:05 Last Admin: 05/23/21 22:42 Dose: 250 mls/hr Documented by: Sodium Chloride (Normal Saline) 1,000 mls @ 75 mls/hr IV ASDIRECTED LIVE Last Admin: 05/23/21 23:44 Dose: 75 mls/hr Documented by: Remdesivir 100 mg/ Sodium (Chloride) 250 mls @ 250 mls/hr IV Q24H LIVE Stop: 05/27/21 22:59 Last Admin: 05/24/21 21:29 Dose: 250 mls/hr Documented by: Magnesium Hydroxide (Magnesium Hydroxide 400 Mg/5 Ml Susp 30 Ml Cup) 30 ml PO ONETIME ONE Stop: 05/26/21 09:01 Ondansetron HCl (Ondansetron 4 Mg/2 Ml Sdv) 4 mg IVPUSH ONETIME ONE Stop: 05/23/21 20:59 Last Admin: 05/23/21 21:05 Dose: 4 mg Documented by: - Exam Quality Assessment: Supplemental Oxygen (0.5L), DVT Prophylaxis. No: Urine Catheter General: Alert, Oriented, Cooperative, No Acute Distress HEENT: Pupils Equal, Pupils Reactive, Mucous Membr. Moist/[place] Neck: Supple, Trachea Midline Lungs: Normal Respiratory Effort, Decreased Breath Sounds, Crackles Cardiovascular: Regular Rate, Regular Rhythm GI/Abdominal Exam: Normal Bowel Sounds, Soft, Non-Tender, No Distention (Male) Exam: Deferred Back Exam: Normal Inspection, Full Range of Motion Extremities: Normal Inspection, Normal Range of Motion, Non-Tender, No Pedal Edema, Normal Capillary Refill Skin: Warm, Dry, Intact Neurological: No New Focal Deficit Psy/Mental Status: Alert, Normal Affect, Normal Mood - Patient Data Lab Results Last 24 hrs: Laboratory Results - last 24 hr 05/26/21 05/26/21 05/26/21 Range/Units 05:52 05:52 05:52 WBC 4.82 (4.23-9.07) K/mm3 RBC 5.84 (4.63-6.08) M/mm3 Hgb 15.2 (13.7-17.5) gm/dl Hct 47.2 (40.1-51.0) % MCV 80.8 (79.0-92.2) fl MCH 26.0 (25.7-32.2) pg MCHC 32.2 (32.2-35.5) g/dl RDW Std Deviation 47.8 H (35.1-43.9) fL Plt Count 215 (163-337) K/mm3 MPV 9.8 (9.4-12.3) fl Neut % (Auto) 74.3 H (34.0-67.9) % Lymph % (Auto) 13.7 L (21.8-53.1) % [place] % (Auto) 11.6 (5.3-12.2) % Eos % (Auto) 0 L (0.8-7.0) Baso % (Auto) 0.2 (0.1-1.2) % Neut # (Auto) 3.58 (1.78-5.38) K/mm3 Lymph # (Auto) 0.66 L (1.32-3.57) K/mm3 [place] # (Auto) 0.56 (0.30-0.82) K/mm3 Eos # (Auto) 0.00 L (0.04-0.54) K/mm3 Baso # (Auto) 0.01 (0.01-0.08) K/mm3 D-Dimer, Quantitative 0.24 (0.19-0.50) mg/L Sodium 144 (136-145) mEq/L Potassium 4.4 (3.5-5.1) mEq/L Chloride 105 (98-107) mEq/L Carbon Dioxide 31 (21-32) mEq/L Anion Gap 12.4 (5-15) BUN 16 (7-18) mg/dL Creatinine 1.0 (0.7-1.3) mg/dL Est Cr Clr Drug Dosing 112.09 mL/min Estimated GFR (MDRD) > 60 (>60) mL/min BUN/Creatinine Ratio 16.0 (14-18) Glucose 134 H (70-99) mg/dL Calcium 8.5 (8.5-10.1) mg/dL Magnesium 2.3 (1.8-2.4) mg/dL Total Bilirubin 0.4 (0.2-1.0) mg/dL AST 41 H (15-37) U/L ALT 57 (16-63) U/L Alkaline Phosphatase 52 (46-116) U/L C-Reactive Protein < 0.2 (<1.0) mg/dL Total Protein 6.4 (6.4-8.2) g/dl Albumin 3.4 (3.4-5.0) g/dl Globulin 3.0 gm/dL Albumin/Globulin Ratio 1.1 (1-2) Result Diagrams: 05/26/21 05:52 05/26/21 05:52 Sepsis Event Note - Evaluation Sepsis Screening Result: No Definite Risk - Focused Exam Vital Signs: Vital Signs Temp Pulse Resp BP Pulse Ox Pulse Ox 05/26/21 08:22 92 L 05/26/21 08:10 97.5 F 62 16 115/61 92 L 05/26/21 01:42 96.4 F L 73 18 118/72 95 - Problem List & Annotations (1) COVID-19 SNOMED Code(s): 735143622 Code(s): U07.1 - COVID-19 Status: Acute Priority: High Current Visit: Yes (2) Hypoxia SNOMED Code(s): 797232615 Code(s): R09.02 - HYPOXEMIA Status: Acute Priority: High Current Visit: Yes - Problem List Review Problem List Initiated/Reviewed/Updated: Yes - Plan Plan:: 35-year-old unvaccinated male presents with nausea, vomiting, and cough and is positive for COVID-19. 05/24/2021 COVID-19 pneumonia Hypoxemia 2 to 5-day history of symptoms generally cough, nausea, and vomiting. Hypoxemic when present to the emergency department requiring 2 L nasal cannula. Chest x-ray consistent with mild COVID-19 pneumonia CRP 2.0 otherwise labs were normal. Started on dexamethasone and remdesivir in the emergency department. Remote history of recurrent infectious lung disease otherwise no significant history. 05/25/2021 35-year-old male with COVID-19 and hypoxemia. He has continued to improve and is on only 1 L nasal cannula. He is on day 3 of remdesivir which will be given this evening. Continues on dexamethasone. CRP did come down to 6.0. Creatinine also improved and it is 1.2 down from 1.4 with an estimated GFR of greater than 60. Plan Admit to medical floor FiO2 to keep SPO2 greater than 88%. Remdesivir and dexamethasone day 3 Follow CBC, CMP, mag, CRP Routine COVID-19 care to include proning, RT, incentive spirometry in the such. Zofran for nausea VTE prophylaxis with Lovenox CODE STATUS: Full code 05/26/2021 35-year-old male admitted to the floor for treatment of his COVID-19 pneumonia. Labs today show WBC of 4.82. Hemoglobin 15.2. Platelet 215,000. Neutrophils are elevated at 74.3%. Repeat D-dimer was 0.24. Sodium 144. Potassium 4.4. Anion gap is 12.4. BUN is 16. Creatinine 1.0. GFR greater than 60. Glucose is 134. Calcium 8.5. Magnesium 2.3. Bilirubin 0.4. AST is 41, ALT 57, alkaline phosphatase 52. CRP is less than 0.2. Albumin is 3.4. Patient was weaned off of oxygen today. He was noted to have a drop in his saturations while he showered but these did respond with rest. At this time we will continue his Covid treatment including dexamethasone and remdesivir. Plan will be for discharge tomorrow if patient continues to tolerate room air. Continues on Lovenox for DVT prophylaxis. We will recheck labs tomorrow.
[2021-05-26] MEDS ORDERED: Albuterol 6.7 GM Inhaler INH PRN (10:01)
[2021-05-26] MEDS: REMDESIVIR 100 MG in Sodium Chloride 0.9% 250 ML IV SCH (18:07)
[2021-05-26] MEDS: Dexamethasone 4 MG Tab PO SCH (18:07)
[2021-05-27] MEDS: Docusate Sodium 100 MG Cap PO SCH (08:08)
[2021-05-27] MEDS: Enoxaparin 40 MG/0.4 ML Syringe SUBCUT SCH (08:09)
--- NOTE | 2021-05-27 08:21 | PCM.DCSUM1 ---
Discharge Summary - Hospital Course HPI Initial Comments: 35-year-old male who presented to the emergency department with 2 days of nausea and vomiting. He states he started getting symptomatic approximately 5 days ago with fatigue and intermittent coughing. He feels lethargic and general malaise. When he presented to the emergency department his oxygen saturations were in the 80s and he was placed on 2 L via nasal cannula and oxygen saturations increased to 94%. He has no significant history although he did have multiple RSV infections as a child. Patient was positive for COVID-19. He did not receive the COVID-19 vaccinations. In the emergency department he was started on remdesivir and dexamethasone. It was felt that he needed to be hospitalized secondary to his hypoxemia. Lab work was insignificant except for a slightly elevated CRP of 2.0. Diagnosis: Stroke: No - Discharge Data Discharge Date: 05/27/21 (Admit date: 05/23/2021) Discharge Disposition: Home, Self-Care 01 Condition: Good - Referral to Home Health Primary Care Physician: Mel Wooten MD - Discharge Diagnosis/Problem(s) (1) COVID-19 SNOMED Code(s): 206000288 ICD Code: U07.1 - COVID-19 Status: Acute Priority: High Current Visit: Yes (2) Hypoxia SNOMED Code(s): 143983538 ICD Code: R09.02 - HYPOXEMIA Status: Resolved Priority: High Current Visit: Yes - Patient Summary/Data Labs Pending at D/C: None Recommended Follow-up Testing/Procedures: Recommend follow-up with PCP within 5 to 7 days of discharge, sooner if needed. * Recommend repeat CBC, CMP, and magnesium in follow-up. * Patient instructed to continue utilizing his prior prescribed albuterol inhaler as needed for shortness of breath. * No new medications prescribed at discharge. * Instructed to continue to utilize incentive spirometer and Acapella for 1 to 2 weeks or until symptoms resolve. * Patient instructed to quarantine for 10 days from symptom onset or at the advice of [facility] motion picture projectionist apprentice. Hospital Course: This is a 35-year-old male who presented to our ED on the evening of 05/23/2021 with COVID-19 symptoms, which have been ongoing for about 5 days. States he started having nausea and vomiting and was lethargic. Was found to be hypoxic in the ED with saturations of 86% on room air. He was started on dexamethasone and remdesivir. He completed 5 days of both, with his last dose just prior to discharge. He has been utilizing his incentive spirometer and Acapella and was instructed to continue these for 1 to 2 weeks or until symptoms resolve. He was instructed to continue to prone. At his worst he was requiring 2 L of oxygen and he was weaned off prior to discharge. He has been ambulating around the room without difficulty. D-dimer was mildly elevated on admission at 0.58 and this did trend downward to 0.24. CRP was less than 0.2. There is no leukocytosis. No new medications were prescribed at discharge. He discharged home today. Recommend follow-up with primary care provider within 5 to 7 days of discharge, sooner if needed. Recommend repeat CBC, CMP, and magnesium in follow-up. Consider repeat chest x-ray. Patient instructed to contact primary care provider or return the emergency room should symptoms return or worsen. - Patient Instructions Diet: Usual Diet as Tolerated Activity: As Tolerated Driving: Do Not Drive (Until feeling better ) Showering/Bathing: May Shower Other/Special Instructions: Follow-up with primary care provider within 5 to 7 days of discharge, sooner if needed. You should isolate/quarantine for a total of 10 days from symptom onset. You'll likely receive a call from a case sealer from the [facility]. Please follow their directions. Continue to utilize your incentive spirometer (clear/blue device you inhale through) and Acapella (tubelike device you blow through) for 1-2 more weeks or until symptoms resolve. You may take [id number] cough medicine such as Robitussin-DM if needed. Continue to utilize your albuterol inhaler as prescribed for shortness of breath. Take it easy but stay active. You'll likely notice decreased endurance with activity. Listen to your body and rest as needed. Continue to prone (lay on your belly) whenever possible, especially when napping/sleeping. Should symptoms return or worsen contact your primary care provider or return to the emergency room. - Discharge Plan *PRESCRIPTION DRUG MONITORING PROGRAM REVIEWED*: No *COPY OF PRESCRIPTION DRUG MONITORING REPORT IN PATIENT JIM: No Home Medications: Home Meds Albuterol [Ventolin HFA] 2 puff PO Q2HR PRN 05/23/21 [History] Oxygen Therapy Mode: Room Air Patient Handouts: COVID-19, How to Use an Incentive Spirometer, 10 Things You Can Do to Manage Your COVID-19 Symptoms at Home - [facility] (01/17/2021), Sepsis, Diagnosis, Adult, Smokeless Tobacco Information, Adult Forms: ED Department Discharge Referrals: Mel Wootne MD [Primary Care Provider] - 06/10/21 4:00 pm (this is your arrival time for your appointment.) - Discharge Summary/Plan Comment DC Time >30 min.: Yes Total # of Minutes for Discharge Time: 45 mins - General Info Date of Service: 05/27/21 Admission Dx/Problem (Free Text: Admission Diagnosis/Problem Admission Diagnosis/Problem Hypoxia Functional Status: Reports: Pain Controlled, Tolerating Diet, Ambulating, Urinating, Incentive Spirometry. Denies: New Symptoms - Review of Systems General: Reports: No Symptoms. Denies: Fever, Weakness, Fatigue, Malaise, Chills HEENT: Reports: No Symptoms. Denies: Headaches, Sore Throat Pulmonary: Reports: Cough. Denies: Shortness of Breath, Sputum, Wheezing Cardiovascular: Reports: Dyspnea on Exertion (improved ). Denies: Chest Pain, Palpitations Gastrointestinal: Reports: No Symptoms. Denies: Abdominal Pain, Constipation, Diarrhea, Nausea, Vomiting Genitourinary: Reports: No Symptoms. Denies: Pain Musculoskeletal: Reports: No Symptoms Skin: Reports: No Symptoms. Denies: Cyanosis Neurological: Reports: No Symptoms. Denies: Confusion, Dizziness, Headache, Numbness, Tingling, Difficulty Walking, Weakness, Gait Disturbance Psychiatric: Reports: No Symptoms - Patient Data Vitals - Most Recent: Last Vital Signs Temp 97.0 F 05/27/21 06:26 Pulse 84 05/27/21 06:26 Resp 20 05/27/21 06:26 BP 122/72 05/27/21 06:26 Pulse Ox 90 L 05/27/21 06:26 Weight - Most Recent: 186 lb 14.4 oz I&O - Last 24 hours: Intake & Output 05/26/21 05/27/21 05/27/21 22:59 06:59 14:59 Intake Total 540 Output Total 500 Balance 40 Lab Results - Last 24 hrs: Laboratory Results - last 24 hr 05/27/21 05/27/21 Range/Units 06:05 06:05 WBC 5.44 (4.23-9.07) K/mm3 RBC 5.75 (4.63-6.08) M/mm3 Hgb 15.1 (13.7-17.5) gm/dl Hct 46.4 (40.1-51.0) % MCV 80.7 (79.0-92.2) fl MCH 26.3 (25.7-32.2) pg MCHC 32.5 (32.2-35.5) g/dl RDW Std Deviation 48.2 H (35.1-43.9) fL Plt Count 235 (163-337) K/mm3 MPV 9.8 (9.4-12.3) fl Neut % (Auto) 72.0 H (34.0-67.9) % Lymph % (Auto) 16.0 L (21.8-53.1) % Mills % (Auto) 11.2 (5.3-12.2) % Eos % (Auto) 0 L (0.8-7.0) Baso % (Auto) 0.4 (0.1-1.2) % Neut # (Auto) 3.92 (1.78-5.38) K/mm3 Lymph # (Auto) 0.87 L (1.32-3.57) K/mm3 Mills # (Auto) 0.61 (0.30-0.82) K/mm3 Eos # (Auto) 0.00 L (0.04-0.54) K/mm3 Baso # (Auto) 0.02 (0.01-0.08) K/mm3 Manual Slide Review Normal smear Sodium 141 (136-145) mEq/L Potassium 4.5 (3.5-5.1) mEq/L Chloride 104 (98-107) mEq/L Carbon Dioxide 30 (21-32) mEq/L Anion Gap 11.5 (5-15) BUN 17 (7-18) mg/dL Creatinine 1.0 (0.7-1.3) mg/dL Est Cr Clr Drug Dosing 112.09 mL/min Estimated GFR (MDRD) > 60 (>60) mL/min BUN/Creatinine Ratio 17.0 (14-18) Glucose 131 H (70-99) mg/dL Calcium 8.4 L (8.5-10.1) mg/dL Magnesium 2.4 (1.8-2.4) mg/dL Total Bilirubin 0.5 (0.2-1.0) mg/dL AST 59 H (15-37) U/L ALT 92 H (16-63) U/L Alkaline Phosphatase 54 (46-116) U/L C-Reactive Protein <0.2 (<1.0) mg/dL Total Protein 6.5 (6.4-8.2) g/dl Albumin 3.3 L (3.4-5.0) g/dl Globulin 3.2 gm/dL Albumin/Globulin Ratio 1.0 (1-2) Med Orders - Current: Current Medications Acetaminophen (Acetaminophen 325 Mg Tab) 975 mg PO Q6H PRN PRN Reason: Fever Last Admin: 05/24/21 22:35 Dose: 975 mg Documented by: Albuterol (Albuterol 6.7 Gm Inhaler) 0 gm INH Q2H PRN PRN Reason: Wheezing Dexamethasone (Dexamethasone 4 Mg Tab) 6 mg PO Q24H LIVE Stop: 06/01/21 14:01 Docusate Sodium (Docusate Sodium 100 Mg Cap) 100 mg PO Q12H LIVE Last Admin: 05/27/21 08:08 Dose: 100 mg Documented by: Enoxaparin Sodium (Enoxaparin 40 Mg/0.4 Ml Syringe) 40 mg SUBCUT DAILY LIVE Last Admin: 05/27/21 08:09 Dose: 40 mg Documented by: Remdesivir 100 mg/ Sodium (Chloride) 250 mls @ 250 mls/hr IV ONETIME ONE Stop: 05/27/21 14:59 Melatonin (Melatonin 3 Mg Tab) 6 mg PO BEDTIME PRN PRN Reason: Insomnia Last Admin: 05/24/21 22:34 Dose: 6 mg Documented by: Ondansetron HCl (Ondansetron 4 Mg/2 Ml Sdv) 4 mg IVPUSH Q8H PRN PRN Reason: Nausea Sodium Chloride (Sodium Chloride 0.9% 10 Ml Syringe) 10 ml FLUSH ASDIRECTED PRN PRN Reason: Keep Vein Open Last Admin: 05/23/21 21:05 Dose: 10 ml Documented by: Discontinued Medications Acetaminophen (Acetaminophen 325 Mg Tab) 975 mg PO NOW ONE Stop: 05/23/21 20:39 Last Admin: 05/23/21 21:05 Dose: 975 mg Documented by: Albuterol (Albuterol 6.7 Gm Inhaler) 2 gm INH Q2H PRN PRN Reason: Wheezing Dexamethasone (Dexamethasone 10 Mg/Ml Sdv) 6 mg IVPUSH ONETIME ONE Stop: 05/23/21 22:05 Last Admin: 05/23/21 22:41 Dose: 6 mg Documented by: Dexamethasone (Dexamethasone 4 Mg Tab) 6 mg PO Q24H LIVE Stop: 06/01/21 21:01 Last Admin: 05/24/21 21:28 Dose: 6 mg Documented by: Dexamethasone (Dexamethasone 4 Mg Tab) 6 mg PO Q24H LIVE Stop: 06/01/21 19:01 Last Admin: 05/26/21 18:07 Dose: 6 mg Documented by: Remdesivir 200 mg/ Sodium (Chloride) 250 mls @ 250 mls/hr IV ONETIME ONE Stop: 05/23/21 22:05 Last Admin: 05/23/21 22:42 Dose: 250 mls/hr Documented by: Sodium Chloride (Normal Saline) 1,000 mls @ 75 mls/hr IV ASDIRECTED [facility] Last Admin: 05/23/21 23:44 Dose: 75 mls/hr Documented by: Remdesivir 100 mg/ Sodium (Chloride) 250 mls @ 250 mls/hr IV Q24H [facility] Stop: 05/27/21 22:59 Last Admin: 05/24/21 21:29 Dose: 250 mls/hr Documented by: Remdesivir 100 mg/ Sodium (Chloride) 250 mls @ 250 mls/hr IV Q24H [facility] Stop: 05/27/21 19:59 Last Admin: 05/26/21 18:07 Dose: 250 mls/hr Documented by: Magnesium Hydroxide (Magnesium Hydroxide 400 Mg/5 Ml Susp 30 Ml Cup) 30 ml PO ONETIME ONE Stop: 05/26/21 09:01 Last Admin: 05/26/21 09:59 Dose: 30 ml Documented by: Ondansetron HCl (Ondansetron 4 Mg/2 Ml Sdv) 4 mg IVPUSH ONETIME ONE Stop: 05/23/21 20:59 Last Admin: 05/23/21 21:05 Dose: 4 mg Documented by: - Exam Quality Assessment: Reports: DVT Prophylaxis. Denies: Supplemental Oxygen, Urine Catheter General: Reports: Alert, Oriented, Cooperative, No Acute Distress HEENT: Reports: Pupils Equal, Pupils Reactive, Mucous Membr. Moist/[place] Neck: Reports: Supple, Trachea Midline Lungs: Reports: Normal Respiratory Effort, Decreased Breath Sounds. Denies: Crackles, Rhonchi, Wheezing Cardiovascular: Reports: Regular Rate, Regular Rhythm GI/Abdominal Exam: Normal Bowel Sounds, Soft, Non-Tender, No Distention, No Abnormal Bruit (Male) Exam: Deferred Rectal (Males) Exam: Deferred Back Exam: Reports: Normal Inspection, Full Range of Motion Extremities: Normal Inspection, Normal Range of Motion, Non-Tender, No Pedal Edema, Normal Capillary Refill Skin: Reports: Warm, Dry, Intact Neurological: Reports: No New Focal Deficit Psy/Mental Status: Reports: Alert, Normal Affect, Normal Mood
[2021-05-27] MEDS ORDERED: Dexamethasone 4 MG Tab PO SCH (14:00)
[2021-05-27] MEDS ORDERED: REMDESIVIR 100 MG in Sodium Chloride 0.9% 250 ML IV ONE (14:00)
== END 2021-05-27 14:43 | disposition home or self-care (01) | DRG 137 ==
LOC: JD.ED 20:07 → JD.MS 22:12
PROVIDERS: ADMIT Family Medicine; ATTEND Family Medicine
PROC: XW033E5 Introduction of Remdesivir Anti-infective into Peripheral Vein, Percutaneous Approach, New Technology Group 5 (ICD-10-PCS; principal; 2021-05-23)
PROC: 3E0333Z Introduction of Anti-inflammatory into Peripheral Vein, Percutaneous Approach (ICD-10-PCS; 2021-05-23)
PROC: 3E0DX3Z Introduction of Anti-inflammatory into Mouth and Pharynx, External Approach (ICD-10-PCS; 2021-05-24)
DX: U07.1 COVID-19 (principal); J12.82 Pneumonia due to coronavirus disease 2019; J96.01 Acute respiratory failure with hypoxia; F17.200 Nicotine dependence, unspecified, uncomplicated; M54.9 Dorsalgia, unspecified; G89.29 Other chronic pain; Z88.8 Allergy status to other drugs, medicaments and biological substances; Z79.899 Other long term (current) drug therapy; Z87.01 Personal history of pneumonia (recurrent)
CPT/HCPCS: 36415; 71045; 71045-26; 80053; 83735; 84100; 85025; 85379; 86140; 94762; 96374; 99223; 99232; 99239; 99285-25; A9270-GY; J1100; J1650; J2405; J7030; J7050; J8540